=== PATIENT | female | born 1965 | race Caucasian/White ===

== ENCOUNTER → 2016-08-09 | Outpatient (CLI) | payer OTHER ==
[~2016-08-09] MED LIST: ASCO500C3 PO; CHOL400T PO; CYAN250T PO; MULTCHW3 PO; TAMO20TA9 PO
[2016-08-09 13:01] VITALS: BP 111/72; PULSE 80; TEMP 36.8; O2SAT 97
--- NOTE | 2016-08-09 14:24 | Radiation Oncology Follow-Up ---
Radiation Oncology Follow-Up Date of Visit August 09, 2016. Reason For Visit Annual follow up Radiation Completion Date Hypofractionation 01/01/13 Diagnosis (1) Breast cancer Status: Resolved Onset Date: 09/11/2012 Histology Subtype: ductal Stage: l Permanent Comment: Self detected left axillary mass Status post biopsy revealing infiltrating ductal carcinoma, estrogen receptor positive, progesterone receptor positive, and HER-2/jaspreet negative Status post lumpectomy and sentinel lymph node biopsy pathologic stage [id number] Oncotype DX score of 12 Status post completion of radiation therapy 01/01/2013 utilizing hypo- fractionation received 5006 cGy Last Edited By: Amanda Rubin on August 05, 2014 15:43 Interim History She's been doing well over this past year. She has noted no masses or tenderness and no change of the axilla. She has no swelling for arm. She is up -to-date on mammography. She continues on tamoxifen and denies side effects. She had a recheck mammogram 04/08/2016. The left breast showed status post lumpectomy. The round calcifications, unchanged. Benign, no evidence of malignancy. Normal interval follow-up is recommended in 12 months. The right breast showed coarse heterogeneous and round calcifications, unchanged. Benign , no evidence of malignancy. Normal interval follow-up is recommended in 12 months. Overall assessment is category 2 benign. She has noted irritation of her right eye over the past week. This occurs in the morning. She did not notice any matter in the eye. She has noticed a redness of the eye. She denies any itching or burning. Allergies Coded Allergies: No Known Allergies (Unverified , 10/16/12) PER MARY IN ASU CHART PREP Home Medications Scheduled Ascorbic Acid (Vitamin C), 500 MG PO DAILY Cholecalciferol (Vitamin D), 400 MG PO DAILY Cyanocobalamin (Vitamin B-12), 250 MCG PO DAILY Multiple Vitamins W/ Minerals (Centrum), 1 TAB PO DAILY Tamoxifen (Nolvadex), 20 MG PO DAILY Review of Systems Gastrointestinal: Symptoms: WNL Oral: Symptoms: No Problems Respiratory: Symptoms: WNL Urinary: Symptoms: WNL Skin: Symptoms: No Problems Other Skin Symptoms: Tangelectasis on left breast; Breast: Right Upper Arm Measurement: 28.0 Right Mid Arm Measurement: 24.5 Right Wrist Measurement: 15.0 Left Upper Arm Measurement: 28.0 Left Mid Arm Measurement: 24.0 Left Wrist Measurement: 15.5 Arm Dominence: Right Physical Exam Vital Signs Date Time Temp Pulse Resp B/P Pulse Ox O2 Delivery O2 Flow Rate FiO2 08/09/16 13:01 36.8 80 16 111/72 97 Fatigue: None General Appearance: no apparent distress Eyes: normal inspection ENT: normal ENT inspection, hearing grossly normal Neck: no adenopathy, thyroid normal Respiratory/Chest: lungs clear, no respiratory distress, no accessory muscle use Breast: Breast examination reveals a well-healed incision of the left axilla. There are no masses or tenderness and no axillary adenopathy. She has telangiectasia across the upper quadrants of the breast to the axilla. This is more prominent than last year. Using the [place] score cosmesis she has a fair outcome due to telangiectasia. The right breast showed no masses or tenderness and no axillary adenopathy. Cardiovascular: regular rate, rhythm, no gallop, no murmur Skin: warm/dry Additional Studies Mammography as reviewed above. Assessment & Plan Plan: Continue scheduled mammography. Continue regular follow-up with her primary care physician as well as Dr. Parish. She continues on tamoxifen. We asked her to return to our office in 1 year. She has any questions or concerns in the interim. 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 She can also use [id number] eyedrops. We discussed the telangiectasia. She is not concerned with this cosmetic outcome. Total Time In Follow-Up I spent 20 minutes speaking to the patient and performing examination. I spent 15 minutes reviewing information and completing this note. Copy To Hector Dacosta D.O.; Demi Parish MD; Hector Houser M.D. Problem Qualifiers (1) Breast cancer: Patient sex: female Laterality: left
== END | disposition home or self-care (01) ==
LOC: C.ONC 12:52
PROVIDERS: ATTEND Physician Assistant Medical
DX: Z08 Encounter for follow-up examination after completed treatment for malignant neoplasm (principal); Z92.3 Personal history of irradiation; Z85.3 Personal history of malignant neoplasm of breast

== ENCOUNTER → 2017-08-09 | Outpatient (CLI) | payer OTHER ==
--- NOTE | 2017-08-09 14:02 | DIAGNOSTIC IMAGING REPORT ---
CHEST 2 VIEWS ROUTINE CLINICAL HISTORY: R05 cough COMPARISON STUDY: No previous studies for comparison. FINDINGS: The bones soft tissues and hemidiaphragms are normal. The cardiomediastinal silhouette is normal. The lungs are clear. The pulmonary vasculature is normal. IMPRESSION: Negative chest. The above report was generated using voice recognition software. It may contain grammatical, syntax or spelling errors. Electronically signed by: Alvin Contreras M.D. 08/09/2017 2:01 PM Dictated Date/Time: 08/09/2017 2:00 PM
== END | disposition home or self-care (01) ==
LOC: C.RAD 13:37
PROVIDERS: ATTEND Physician Assistant Medical
DX: R05 Cough (principal)